=== PATIENT | female | born 1965 | race Asian ===

== ENCOUNTER 2018-03-01 10:26 | Emergency (ER) | payer MEDICAID ==
[~2018-03-01] VITALS: Ht 157.5 cm; Wt 65.0 kg
[~2018-03-01 10:26] MED LIST: HYDR-569 PO
[2018-03-01 11:35] VITALS: BP 132/74
[2018-03-01] MEDS ORDERED: diphenhydrAMINE 50 mg/ml inj IM ONE (11:55)
[2018-03-01] MEDS ORDERED: methylPREDNISolone sod succ 125mg/2ml vial IM ONE (11:55)
[2018-03-01] MEDS ORDERED: PRED10TA PO (11:57)
== END 2018-03-01 12:13 | disposition home or self-care (01) ==
LOC: ER 10:27
DX: T78.40XA Allergy, unspecified, initial encounter (principal); I10 Essential (primary) hypertension; E11.9 Type 2 diabetes mellitus without complications; Z90.49 Acquired absence of other specified parts of digestive tract; Z79.899 Other long term (current) drug therapy; Z56.0 Unemployment, unspecified; X58.XXXA Exposure to other specified factors, initial encounter
CPT/HCPCS: 96372; 99284; J1200; J2930